=== PATIENT | female | born 1965 | race Caucasian/White ===

== ENCOUNTER → 2018-06-01 | Outpatient (CLI) | payer OTHER ==
[~2018-06-01] MED LIST: ACETAMINOPHEN PO; IBUP-1449 PO
== END | disposition home or self-care (01) ==
LOC: C.CPL 15:46
PROVIDERS: ATTEND Surgery
DX: Z01.818 Encounter for other preprocedural examination (principal); C85.90 Non-Hodgkin lymphoma, unspecified, unspecified site

== ENCOUNTER → 2018-06-04 | Day surgery (SDC) | payer OTHER ==
[2018-06-02 13:46] VITALS: BMI 34.0
[~2018-06-04] VITALS: Ht 165.1 cm; Wt 93.2 kg
[~2018-06-04] MED LIST changes: +ATROPINE SULFATE 0.1 MG/ML 5ML SYR IV PRN; +BUPIVACAINE 0.5 % 5 MG/1 ML PF 10ML VIAL ONE; +CEFAZOLIN 2000MG IV PUSH 15 ML IV SCH; +DEXAMETHASONE SOD INJ 4 MG/ML VIAL ONE; +EpHEDrine SULFATE INJ 50 MG/ML AMP IV PRN; +FENTANYL CITRATE INJ 50 MCG/1 ML 2 ML VIAL IV PRN; +FENTANYL CITRATE INJ 50 MCG/1 ML 2 ML VIAL ONE; +HEPARIN SOD (PORCINE) 5000 UNIT/ML 1 ML VIAL ONE; +HYDROmorphone INJ 1 MG/ML SYR IV PRN; +KETOROLAC TROMETHAMINE 30 MG/ML VIAL IV. PRN; +KETOROLAC TROMETHAMINE 30 MG/ML VIAL ONE; +LACTATED RINGER'S 1000ML 1,000 ML IV SCH; +LIDOCAINE/EPINEPHRINE 1% 20 ML VIAL ONE; +MIDAZOLAM HCL 1 MG/ML 2ML VIAL ONE; +MoRPHine SULFATE 2 MG/ML CARP IV PRN; +MoRPHine SULFATE 4 MG/ML 1 ML CARP\\VIAL IV PRN; +ONDANSETRON INJ 2 MG/ML 2 ML VIAL IV PRN; +ONDANSETRON INJ 2 MG/ML 2 ML VIAL ONE; +OXYCODONE/ACETAMINOPHEN 5-325 TAB PO PRN; +PHENYLEPHRINE 100MCG/ML 5ML SYR IV PRN; +PROMETHAZINE HCL INJ 12.5 MG in SODIUM CHLORIDE 0.9% 50ML 50 ML IV PRN; +PROPOFOL IV EMULSION 10 MG/ML 20 ML VIAL ONE; +SODIUM CHLORIDE 0.9% 1000ML 1,000 ML IV SCH
[2018-06-04 06:59] VITALS: BP 131/88; PULSE 64; TEMP 36.8; O2SAT 99; Ht 165.1 cm; Wt 93.2 kg
--- NOTE | 2018-06-04 08:20 | History & Physical Bridge Note ---
H&P Re-Evaluation Bridge Note: I have examined the patient, reviewed the History & Physical and in the interval since the performance of the History & Physical I have noted the following changes of clinical significance: No changes noted
--- NOTE | 2018-06-04 10:19 | Discharge Instructions ---
Discharge Instructions Date of Service Jun 04, 2018. Visit Reason for Visit: Non-Hodgkin's Lymphoma Discharge Discharge Diagnosis / Problem: A-port Discharge Goals Goal(s): Therapeutic intervention Activity Recommendations Activity Limitations: as noted below Shower/Bathe: no limitations Driving or Machine Use: resume 1 day after discharge Anesthesia . Post Anesthesia Instructions: If you have had General Anesthesia or IV Sedation: * Do not drive today. * Resume driving when surgeon permits. * Do not make important decisions or sign legal documents today. * Call surgeon for: 1. Temperature elevations greater than 101 degrees F. 2. Uncontrollable pain. 3. Excessive bleeding. 4. Persistent nausea and vomiting. 5. Medication intolerance (nausea, vomiting or rash). * For nausea and vomiting use only clear liquids such as: tea, soda, bouillon until nausea subsides, then gradually increase diet as tolerated. * If you have any concerns or questions, call your surgeon's office. If physician is unavailable and it is an emergency, call 911 or go to the nearest emergency room. . Instructions / Follow-Up Instructions / Follow-Up Dr. Wilburn in 1-2 weeks as planned, call [phone] if you have any questions It is OK for port to be used You may take Tylenol OTC as directed or ibuprofen 600 mg every 6 hours as needed for pain Diet Recommendations Recommended Home Diet: no limitations Procedures Procedures Performed: Insertion of Mediport with Fluoroscopy Pending Studies Studies pending at discharge: no Medical Emergencies . Who to Call and When: Medical Emergencies: If at any time you feel your situation is an emergency, please call 911 immediately. . Non-Emergent Contact Non-Emergency issues call your: Surgeon Call Non-Emergent contact if: you have a fever, temperature is above 101.5, your pain is not controlled, wound has increased redness, you have any medication questions . . "Provider Documentation" section prepared by Jaden Kelley. .
--- NOTE | 2018-06-04 10:27 | [facility] Post Operative Brief Note ---
Immediate Operative Summary Operative Date Jun 04, 2018. Pre-Operative Diagnosis Non-Hodgkin Lymphoma Post-Operative Diagnosis Non-Hodgkin Lymphoma Procedure(s) Performed Insertion of Mediport with Fluoroscopy Surgeon Dr Wilburn Hull Builder Surgeon(s) None Estimated Blood Loss 6CC Findings Consistent with Post-Op Diagnosis Specimens None per surgeon Drains None Anesthesia Type MAC Complication(s) none Disposition Accompanied Pt To Recover: no Disposition: Recovery Room / PACU
--- NOTE | 2018-06-04 10:33 | [facility] Operative Report ---
Operative Report Operative Date Jun 04, 2018. Pre-Operative Diagnosis Non-Hodgkin Lymphoma Post-Operative Diagnosis Same Procedure(s) Performed Left internal jugular port placement using real-time ultrasound guidance and fluoroscopy Surgeon Dr Wilburn [employer] Dealer Surgeon(s) None Estimated Blood Loss 6CC Findings Left internal jugular vein accessed using real-time ultrasound guidance. Port placed using fluoroscopy. Draws and flushes easily at the conclusion of the case. Specimens None per surgeon Drains None Anesthesia MAC/local Complication(s) None Disposition Recovery Room / PACU Indications 53-year-old female with new diagnosis of non-Hodgkin's lymphoma, plan for port placement. The risks of the procedure were discussed, all questions were answered, and the patient agreed to proceed with surgery as planned. Description of Procedure The patient was properly identified, consented, and taken to the operating room where she was placed in the supine position with both arms tucked and a shoulder roll placed vertically. Monitored anesthesia care was induced. SCDs and a safety belt were placed. Preoperative antibiotics were administered. The patient's chest and neck was prepped and draped in the standard sterile fashion. Surgical timeout was performed and all parties were in agreement that this was the correct patient and procedure to be performed and we continued as planned. The patient was placed in Trendelenburg position. Local anesthetic was injected along the skin incision. Using real-time ultrasound guidance the left internal jugular vein was accessed using the access needle. The wire was placed and the needle was removed. Fluoroscopy confirmed placement into the internal jugular vein extending into the superior vena cava. A transverse skin incision was made in the left chest and a pocket was created for the port. A subcutaneous tunnel was created and the catheter was brought from the neck incision into the chest incision. The dilator and peel-away sheath were inserted over the wire. The catheter was then inserted through the peel-away sheath and fluoroscopy confirmed placement into the superior vena cava. The catheter was cut and attached to the port. The port was secured into place with 3-0 Prolene sutures. A final x-ray revealed good placement of the port. The wound was irrigated and hemostasis was confirmed. The skin was closed with interrupted 3-0 Vicryl deep dermal sutures, followed by 4-0 Monocryl running subcuticular suture. Dermabond was placed over the wound. The port was accessed and marjan blood easily and flushed easily. It was flushed with heparinized saline. The patient taken to the PACU where she recovered without apparent incident. All sponge, instrument and needle counts were correct at the conclusion of the procedure. The patient tolerated the procedure well. I attest to the content of the Intraoperative Record and any orders documented therein. Any exceptions are noted below.
--- NOTE | 2018-06-04 10:37 | [facility] Operative Report ---
Operative Report Operative Date Jun 04, 2018. Pre-Operative Diagnosis Non-Hodgkin Lymphoma Surgeon Dr Wilburn Findings Real-time ultrasound guidance was used and interpreted by the operative surgeon to access the left internal jugular vein. Fluoroscopy was used and interpreted by the surgeon to assist in placement of the port. A total of 13 seconds of fluoroscopy time was utilized. Specimens None per surgeon Disposition Recovery Room / PACU I attest to the content of the Intraoperative Record and any orders documented therein. Any exceptions are noted below.
[2018-06-04 10:57] VITALS: BP 115/72; PULSE 64; TEMP 36.6; O2SAT 98
--- NOTE | 2018-06-04 10:59 | DIAGNOSTIC IMAGING REPORT ---
CHEST ONE VIEW PORTABLE HISTORY: status post port COMPARISON: Chest 04/09/2018. FINDINGS: Interval placement of a left jugular Port-A-Cath which terminates in the SVC. The heart is borderline enlarged. There are low lung volumes. No pneumothorax. Perihilar interstitial and vascular thickening has progressed. There is also progressive interstitial prominence within the left lower lobe and left perihilar density. IMPRESSION: 1. Left jugular Port-A-Cath terminates in the SVC. No pneumothorax. 2. Perihilar interstitial and vascular thickening suggestive of mild congestive change. This has progressed. 3. There is also a small left focal perihilar density and progressive interstitial thickening at the left lung base. This could be due to the suspected pulmonary edema or a superimposed pneumonia. Electronically signed by: Michael Ornelas M.D. 06/04/2018 10:58 AM Dictated Date/Time: 06/04/2018 10:55 AM
--- NOTE | 2018-06-04 11:05 | Anesthesiology Progress Note ---
Anesthesia Post Op Note Date & Time Jun 04, 2018 at 11:05 Vital Signs Pain Intensity: 0 Vital Signs Past 12 Hours Date Time Temp Pulse Resp B/P (MAP) Pulse Ox O2 Delivery O2 Flow Rate FiO2 06/04/18 10:51 36.2 60 16 121/79 98 Room Air 06/04/18 10:40 69 16 124/72 100 Room Air 06/04/18 10:31 36.1 61 16 119/78 98 Room Air 06/04/18 06:59 36.8 64 18 131/88 (102) 99 Room Air Notes Mental Status: alert / awake / arousable, participated in evaluation Pt Amnestic to Procedure: Yes Nausea / Vomiting: adequately controlled Pain: adequately controlled Airway Patency, RR, SpO2: stable & adequate BP & HR: stable & adequate Hydration State: stable & adequate Anesthetic Complications: no major complications apparent
[2018-06-04 11:27] VITALS: BP 104/73; PULSE 60; TEMP 36.8; O2SAT 99
== END | disposition home or self-care (01) ==
LOC: C.ACU 06:02
PROVIDERS: ATTEND Surgery
DX: C85.90 Non-Hodgkin lymphoma, unspecified, unspecified site (principal); E66.9 Obesity, unspecified; Z68.34 Body mass index [BMI] 34.0-34.9, adult; F17.200 Nicotine dependence, unspecified, uncomplicated; Z90.49 Acquired absence of other specified parts of digestive tract; Z90.710 Acquired absence of both cervix and uterus

== ENCOUNTER → 2018-06-07 | Outpatient (CLI) | payer OTHER ==
[~2018-06-07] MED LIST changes: -ATROPINE SULFATE 0.1 MG/ML 5ML SYR IV PRN; -BUPIVACAINE 0.5 % 5 MG/1 ML PF 10ML VIAL ONE; -CEFAZOLIN 2000MG IV PUSH 15 ML IV SCH; -DEXAMETHASONE SOD INJ 4 MG/ML VIAL ONE; -EpHEDrine SULFATE INJ 50 MG/ML AMP IV PRN; -FENTANYL CITRATE INJ 50 MCG/1 ML 2 ML VIAL IV PRN; -FENTANYL CITRATE INJ 50 MCG/1 ML 2 ML VIAL ONE; -HEPARIN SOD (PORCINE) 5000 UNIT/ML 1 ML VIAL ONE; -HYDROmorphone INJ 1 MG/ML SYR IV PRN; -KETOROLAC TROMETHAMINE 30 MG/ML VIAL IV. PRN; -KETOROLAC TROMETHAMINE 30 MG/ML VIAL ONE; -LACTATED RINGER'S 1000ML 1,000 ML IV SCH; -LIDOCAINE/EPINEPHRINE 1% 20 ML VIAL ONE; -MIDAZOLAM HCL 1 MG/ML 2ML VIAL ONE; -MoRPHine SULFATE 2 MG/ML CARP IV PRN; -MoRPHine SULFATE 4 MG/ML 1 ML CARP\\VIAL IV PRN; -ONDANSETRON INJ 2 MG/ML 2 ML VIAL IV PRN; -ONDANSETRON INJ 2 MG/ML 2 ML VIAL ONE; -OXYCODONE/ACETAMINOPHEN 5-325 TAB PO PRN; +PERFLUTREN LIPID MICROSPHERE (DEFINITY) IV ONE; -PHENYLEPHRINE 100MCG/ML 5ML SYR IV PRN; -PROMETHAZINE HCL INJ 12.5 MG in SODIUM CHLORIDE 0.9% 50ML 50 ML IV PRN; -PROPOFOL IV EMULSION 10 MG/ML 20 ML VIAL ONE; -SODIUM CHLORIDE 0.9% 1000ML 1,000 ML IV SCH
--- NOTE | 2018-06-08 21:54 | ECHOCARDIOGRAM REPORT ---
*NOTICE TO RECEIVING REPUBL[employer] AGENCY This information is strictly Confidential and protected under [place] law. [place] law prohibits you from making any further disclosure of this information unless further disclosure is expressly permitted by the written consent of the person to whom it pertains or is authorized by law. A general authorization for the release of medical or other information is not sufficient for this purpose. Hospital accepts no responsibility if the information is made available to any other person, INCLUDING THE PATIENT. Interpretation Summary * Name: POONAM KRUEGER Study Date: 06/07/2018 01:27 PM * Patient Location: [facility] HR: 83 * : 1965 (M/d/yyyy) Gender: Female Height: 65 in * Age: 53 yrs Ethnicity: [place] Weight: 205 lb * Ordering Physician: Jake Rucker * Referring Physician: Jake Rucker D.O. * Performed By: Elizabeth Nicolas RDCS * * Reason For Study: NON HODGKINS LYMPHOMA * BSA: 2.0 m2 * -- Conclusions -- * 1. Normal left ventricular size and systolic function. EF 65-70%. No regional wall motion abnormalities. No left ventricular hypertrophy. No significant diastolic dysfunction. * 2. No significant valvular abnormalities visualized. * 3. Technically difficult study, enhanced with IV Definity. * 4. No prior study available for comparison. Procedure Details * A complete two-dimensional transthoracic echocardiogram was performed (2D, M-mode, Doppler and color flow Doppler). * A contrast injection of Definity was performed to improve assessment of LV function. * Contrast was injected into an intravenous site in the central line. * One vial of Definity ultrasound contrast was diluted in normal saline to a total volume of 10 ml. A total of '2.5' ml of solution was administered during imaging. * Lot # [id number] of Definity utilized for procedure. * Expiration date 05/20. * The attending nurse who injected the contrast agent was JACKELYN RAMESH RN. Left Ventricle * Normal left ventricular size and systolic function. EF 65-70%. No regional wall motion abnormalities. No left ventricular hypertrophy. No significant diastolic dysfunction. Right Ventricle * The right ventricle is grossly normal size. * The right ventricular systolic function is normal as assessed by tricuspid annular plane systolic excursion (TAPSE) (normal >1.5 cm). Atria * The left atrial size is normal. * Right atrial size is normal. * There is no evidence of atrial septal defect, but resolution does not allow assessment for a patent foramen ovale. Mitral Valve * The mitral valve is grossly normal. * There is no mitral valve stenosis. * Significant mitral regurgitation is absent. Tricuspid Valve * The tricuspid valve is not well visualized, but is grossly normal. * There is no tricuspid stenosis. * Significant tricuspid regurgitation is absent. Aortic Valve * The aortic valve is trileaflet. * No hemodynamically significant valvular aortic stenosis. * No aortic regurgitation is present. Pulmonic Valve * The pulmonary valve is inadequately visualized, but the Doppler data is adequate for interpretation. * There is no pulmonic valvular stenosis. * There is no significant pulmonary regurgitation. Great Vessels * The aortic root is normal size. * Ascending aorta of normal dimension Pericardium/Pleural * There is no pericardial effusion. Great Vessels * Normal inferior vena cava size and collapsability with sniff indicates a normal right atrial pressure of 3 mmHg MMode 2D Measurements and Calculations IVSd 0.87 cm IVSs 1.3 cm LVIDd 4.9 cm LVIDs 2.5 cm LVPWd 0.78 cm LVPWs 1.6 cm IVS/LVPW 1.1 FS 47.9 % EDV(Teich) 111.1 ml ESV(Teich) 23.1 ml EF(Teich) 79.2 % EDV(cubed) 115.4 ml ESV(cubed) 16.3 ml EF(cubed) 85.9 % % IVS thick 45.5 % % LVPW thick 102.5 % LV mass(C)d 135.7 grams LV mass(C)dI 67.9 grams/m\S\2 LV mass(C)s 117.5 grams LV mass(C)sI 58.8 grams/m\S\2 SV(Teich) 88.0 ml SI(Teich) 44.0 ml/m\S\2 SV(cubed) 99.1 ml SI(cubed) 49.6 ml/m\S\2 Ao root diam 3.0 cm Ao root area 7.2 cm\S\2 ACS 1.4 cm LA dimension 3.9 cm asc Aorta Diam 2.9 cm LA/Ao 1.3 LVOT diam 1.8 cm LVOT area 2.6 cm\S\2 LVAd ap4 32.0 cm\S\2 LVLd ap4 8.1 cm EDV(MOD-sp4) 106.0 ml EDV(sp4-el) 107.8 ml LVAs ap4 15.7 cm\S\2 LVLs ap4 6.2 cm ESV(MOD-sp4) 33.9 ml ESV(sp4-el) 33.6 ml EF(MOD-sp4) 68.0 % EF(sp4-el) 68.8 % LVAd ap2 28.9 cm\S\2 LVLd ap2 7.8 cm EDV(MOD-sp2) 88.6 ml EDV(sp2-el) 90.9 ml LVAs ap2 14.0 cm\S\2 LVLs ap2 5.9 cm ESV(MOD-sp2) 27.5 ml ESV(sp2-el) 28.1 ml EF(MOD-sp2) 68.9 % EF(sp2-el) 69.0 % LVLd %diff -3.65 % EDV(MOD-bp) 98.4 ml LVLs %diff -5.13 % ESV(MOD-bp) 30.3 ml EF(MOD-bp) 69.2 % SV(MOD-sp4) 72.1 ml SI(MOD-sp4) 36.1 ml/m\S\2 SV(MOD-sp2) 61.0 ml SI(MOD-sp2) 30.5 ml/m\S\2 SV(MOD-bp) 68.1 ml SI(MOD-bp) 34.1 ml/m\S\2 SV(sp4-el) 74.1 ml SI(sp4-el) 37.1 ml/m\S\2 SV(sp2-el) 62.7 ml SI(sp2-el) 31.4 ml/m\S\2 Doppler Measurements and Calculations MV E max samir 95.4 cm/sec MV A max samir 67.4 cm/sec MV E/A 1.4 MV dec time 0.17 sec Ao V2 max 157.0 cm/sec Ao max PG 9.9 mmHg Ao max PG (full) -0.11 mmHg DAPHNE(V,A) 2.6 cm\S\2 DAPHNE(V,D) 2.6 cm\S\2 LV V1 max PG 10.0 mmHg LV V1 max 157.9 cm/sec PA V2 max 82.0 cm/sec PA max PG 2.7 mmHg
== END | disposition home or self-care (01) ==
LOC: C.CPL 13:10
PROVIDERS: ATTEND Internal Medicine Hematology & Oncology
DX: C85.99 Non-Hodgkin lymphoma, unspecified, extranodal and solid organ sites (principal)

== ENCOUNTER → 2018-06-07 | Outpatient (CLI) | payer OTHER ==
[~2018-06-07] MED LIST changes: -PERFLUTREN LIPID MICROSPHERE (DEFINITY) IV ONE
[2018-06-07 16:09] LABS: BASO % 0.3 %; BASO ABS # 0.02 K/uL (0-0.2); EOS % 1.7 %; EOS ABS # 0.12 K/uL (0-0.5); HEMATOCRIT 36.6 % (37-47); HEMOGLOBIN 12.4 g/dL (12.0-16.0); IG# 0.04 K/uL (0.00-0.02); LYMPH % 34.1 %; LYMPH ABS # 2.38 K/uL (1.2-3.4); MEAN CELL VOLUME 85.5 fL (80-100); MEAN CORPUSCULAR HGB CONC 33.9 g/dl (32-36); MEAN PLATELET VOLUME 10.2 fL (7.4-10.4); MONO % 5.3 %; MONO ABS # 0.37 K/uL (0.11-0.59); NEUT ABS # 4.05 K/uL (1.4-6.5); PLATELET COUNT 123 K/uL (130-400); RED CELL DISTRIBUTION WIDTH CV 14.9 % (11.5-14.5); WHITE BLOOD COUNT 6.98 K/uL (4.8-10.8)
[2018-06-07 16:29] LABS: ALBUMIN 3.7 gm/dl (3.4-5.0); ALKALINE PHOSPHATASE 56 U/L (45-117); ALT/SGPT 16 U/L (12-78); AST/SGOT 12 U/L (15-37); BLOOD UREA NITROGEN 19 mg/dl (7-18); CARBON DIOXIDE 29 mmol/L (21-32); CREATININE 0.65 mg/dl (0.60-1.20); GLUCOSE 98 mg/dl (70-99); POTASSIUM 3.9 mmol/L (3.5-5.1); SODIUM 140 mmol/L (136-145); TOTAL PROTEIN 6.8 gm/dl (6.4-8.2)
== END | disposition home or self-care (01) ==
LOC: C.LABSPEC 15:50
PROVIDERS: ATTEND Internal Medicine Hematology & Oncology
DX: C85.99 Non-Hodgkin lymphoma, unspecified, extranodal and solid organ sites (principal)